=== PATIENT | female | born 1995 | race Caucasian/White ===

== ENCOUNTER 2016-11-22 07:09 | Day surgery (SDC) | payer OTHER ==
[2016-11-22 07:32] LABS: BASOPHILS % 0.5 (0.0-1.5); EOSINOPHILS % 5.2 % (0.0-6.8); MEAN CORPUSCULAR HEMOGLOBIN 27.3 pg (28.0-34.0); MEAN CORPUSCULAR VOLUME 85.5 fl (80.0-100.0); MONOCYTES % 4.7 % (0.0-11.0); NEUTROPHILS # 3.8 # k/uL (1.4-7.7)
[2016-11-22 07:51] LABS: eGFR (African) > 60; eGFR (Non-African) > 60
--- NOTE | 2016-11-22 16:10 | Operative Note ---
SURGEON: Dr. William Upton ANESTHESIA: General endotracheal. ESTIMATED BLOOD LOSS: Less than 5 mL. PREOPERATIVE DIAGNOSIS: Desires sterilization. POSTOPERATIVE DIAGNOSIS: Desires sterilization. PROCEDURE PERFORMED: Laparoscopic tubal cauterization. OPERATIVE PROCEDURE AND FINDINGS: After I spoke with the patient, she was taken to the operating room and placed in the supine position. After an adequate level of general endotracheal anesthesia, she was prepped and draped in the lithotomy position. A catheter was used to empty her urinary bladder. A single-tooth tenaculum was placed on the anterior lip of the cervix. Sound was placed in the uterine cavity. These instruments were secured together to use for manipulation of the uterus during the laparoscopy. A small infraumbilical incision was made in the skin. Laparoscopic sleeve and trocar were inserted into the peritoneal cavity. Trocar was removed. The laparoscope was inserted. The peritoneal cavity was inspected during insufflation of 3 L of carbon dioxide gas into the peritoneal cavity. The Umberto bipolar forceps were used to cauterize both the right and left fallopian tubes extensively from the junction of the tube and uterus out to the mid-portion of each tube. Each cautery application lasted for 10 seconds. At the end of this procedure, pictures were taken of both the right and left fallopian tubes where the cautery had been performed. The peritoneal cavity was surveyed. The appendix was normal in appearance, as were portions of the bowel, omentum, greater curvature of the stomach, and surface of the liver. The peritoneal surfaces in the pelvis were unremarkable. There was no evidence for any endometriosis whatsoever. This ended the laparoscopic procedure. All instruments were removed from the peritoneal cavity and vagina. Gas was allowed to escape from the peritoneum. The incision on the patient's abdomen was closed with interrupted 4-0 Vicryl. A Band-Aid was applied to the wound. The patient was awakened and extubated in the operating room. Needle, sponge, and instrument counts were performed more than once by the OR circulating nurse and electronic systems technician. I was told the counts were correct. The patient was then transported from the operating suite to the recovery suite in very good condition. FAYE
== END 2016-11-22 07:10 ==
LOC: OPSURG 07:09
PROVIDERS: ATTEND General Practice
DX: Z30.2 Encounter for sterilization (principal)
CPT/HCPCS: 36415; 80053; 81025; 85025; 85610; 85730; J0131; J1885; J2001; J2250; J2405; J2704; J2710; J3010; J3490; J7030; J7120; 58670; S1016